=== PATIENT | female | born 1950 | race Caucasian/White ===

== ENCOUNTER → 2016-10-13 | Outpatient (CLI) | payer OTHER ==
--- NOTE | 2016-10-13 17:59 | DX ---
DEXA Bone Mineral Densitometry Clinical Indications: Osteoporosis screening in a postmenopausal female . The patient indicates that she takes osteoporosis medicine but does not state which medication. Comparison: None. Technique: Bone Mineral Densitometry (BMD) by Dual Energy X-Ray Absorptiometry (DEXA) was performed u tilizing the [employer] scanner. The lumbar spine was evaluated in the AP projection. The bilate ral hips and right forearm were evaluated in the AP projection. Vertebral fracture assessment was als o performed. AP Lumbar Spine: The L1, L2 vertebral bodies were evaluated. BMD: 0.924 gm/cm2 T-score: -2.1 SD Z-score: -0.3 SD AP Left Hip: Femoral neck. BMD: 0.737 gm/cm2 T-score: -2.2 SD Z-score: -0.5 SD AP Right Hip: Femoral neck. BMD: 0.766 gm/cm2 T-score: -2.0 SD Z-score: -0.3 SD AP Right Forearm, 10/04: BMD: 0.688 gm/cm2 T-score: -2.2 SD Z-score: -0.6 SD Vertebral Fracture Assessment: Degenerative changes with no significant fracture deformity identified . Conclusion: Considering the lowest measured site, the patient's bone density is low; osteopenic ( -2. 5 < T-score < -1 ). The ten year risk for any major osteoporotic fracture is 24.9% and for a hip fracture is 5.2%. Any bone loss in this patient is probably related to aging or estrogen deficiency. Recommendations: 1. Consider excluding secondary metabolic causes of bone loss. 2. Ensure that the patient is taking osteoporosis medication correctly. If the patient has not taking medication consideration could be initiating therapy. Make sure that the patient's hydroxy vitamin D 3 level is >30 ng/ml. 3. Optimize daily calcium intake. Also, a daily dose 800 International Units of vitamin D should be c onsidered. 4. Osteoporosis prevention and treatment begins by modifying risk factors. The patient should be enco uraged to participate in a regular exercise program that includes weightbearing and muscle strengthen ing regimens, as is clinically appropriate. 5. Recommend follow-up DEXA in one year.
== END ==
LOC: FIMAGING 09:32
PROVIDERS: ATTEND Internal Medicine Rheumatology
DX: Z13.820 Encounter for screening for osteoporosis (principal); M85.80 Other specified disorders of bone density and structure, unspecified site; Z78.0 Asymptomatic menopausal state

== ENCOUNTER → 2018-04-17 | Outpatient (CLI) | payer OTHER | LOC: BMCIMAGING 11:23 | PROVIDERS: ATTEND Internal Medicine Rheumatology | DX: M95.3 Acquired deformity of neck (principal); M50.322 Other cervical disc degeneration at C5-C6 level; M53.82 Other specified dorsopathies, cervical region ==

== ENCOUNTER → 2018-12-04 | Outpatient (CLI) | payer OTHER ==
[~2018-12-04] MED LIST: GADOBUTROL 10 ML VIAL IVP ONE
== END ==
LOC: FIMAGING 13:00
PROVIDERS: ATTEND Internal Medicine Rheumatology
DX: Z13.820 Encounter for screening for osteoporosis (principal); M85.89 Other specified disorders of bone density and structure, multiple sites; D35.2 Benign neoplasm of pituitary gland; C50.412 Malignant neoplasm of upper-outer quadrant of left female breast; E07.9 Disorder of thyroid, unspecified; Z78.0 Asymptomatic menopausal state; Z80.0 Family history of malignant neoplasm of digestive organs
CPT/HCPCS: 70553; 77080; A9585